=== PATIENT | male | born 1945 | race Two or more races ===

== ENCOUNTER 2022-04-05 08:10 | Day surgery (SDC) | payer MEDICARE, MEDICAID ==
[~2022-04-05] VITALS: Ht 177.8 cm; Wt 59.0 kg
[~2022-04-05 08:10] MED LIST: ACET325T82 PO; ALBU0.08 HHN; ALBU108A5 IN; APIX5TAB PO; ASCO500T11 PO; BISA10SU52 PR; BUDE0.5S IN; BUDE1AER5 IN; FER325T PO; FURO1TAB31 PO; LACTCAP20 OR; MAGN400S25 PO; MIDO5TAB22 PO; MONT-8 OR; MULT-1018 PO; NAPR220C PO; NUTR-340 PO; PANT40TA2 PO; POTA-220 PO
[2022-04-05] MEDS ORDERED: GLYCOPYRROLATE 0.2 MG/ML 1ML VIAL IV ONE (08:11)
[2022-04-05] MEDS ORDERED: NEOSTIGMINE 1 MG/ML INJ (10mg/10ML VIAL) IV ONE (08:11)
[2022-04-05] MEDS ORDERED: ePHEDrine SULFATE 50 MG/ML AMP IV ONE (08:11)
[2022-04-05] MEDS ORDERED: ROCURONIUM 10MG/ML 10ML VIAL IV ONE (08:11)
[2022-04-05 09:25] LABS: INR 1.05 (0.9-1.15); Partial Thromboplastin Time 26.5 sec (23.6-33.0)
[2022-04-05] MEDS ORDERED: ceFAZolin 1GM/50ML 100 ML IV ONE (09:40)
[2022-04-05] MEDS ORDERED: LIDOCAINE 2% JELLY 11ml (GLYDO) ONE (09:59)
[2022-04-05] MEDS ORDERED: LIDOCAINE 1%-Mpf/Epinephrine 1:200,000 ONE (09:59)
[2022-04-05] MEDS ORDERED: fentaNYL CITRATE 100 MCG/2 ML VL ONE (10:03)
[2022-04-05] MEDS ORDERED: MIDAZOLAM HCL 2MG/2ML 2ml VIAL (1mg/ml) ONE (10:04)
[2022-04-05] MEDS ORDERED: SUCCINYLCHOLINE CHLORIDE 20 MG/ML 10ML VIAL IV ONE (10:05)
[2022-04-05] MEDS ORDERED: PROPOFOL 10 MG/ML 20 ML IV ONE (11:25)
[2022-04-05] MEDS ORDERED: ONDANSETRON HCL 4 MG/2 ML VIAL ONE (11:25)
[2022-04-05] MEDS ORDERED: ONDANSETRON HCL 4 MG/2 ML VIAL IV PRN (11:45)
[2022-04-05] MEDS ORDERED: fentaNYL CITRATE 100 MCG/2 ML VL IV PRN (11:45)
[2022-04-05 12:10] VITALS: BP 168/76
== END 2022-04-05 12:40 | disposition home or self-care (01) ==
LOC: SUR 08:10
PROVIDERS: ATTEND Urology
DX: R33.9 Retention of urine, unspecified (principal); N40.1 Benign prostatic hyperplasia with lower urinary tract symptoms; N31.9 Neuromuscular dysfunction of bladder, unspecified; I11.0 Hypertensive heart disease with heart failure; I50.9 Heart failure, unspecified; I48.91 Unspecified atrial fibrillation; J44.9 Chronic obstructive pulmonary disease, unspecified; Z98.890 Other specified postprocedural states; Z79.899 Other long term (current) drug therapy; Z98.41 Cataract extraction status, right eye; Z98.42 Cataract extraction status, left eye; Z87.891 Personal history of nicotine dependence; Z82.49 Family history of ischemic heart disease and other diseases of the circulatory system; Z82.5 Family history of asthma and other chronic lower respiratory diseases; Z20.822 Contact with and (suspected) exposure to COVID-19
CPT/HCPCS: 36415; 51040; 85610; 85730; C2627; J0330; J0690; J2001; J2250; J2405; J2704; J3010; U0003

== ENCOUNTER 2022-04-08 14:28 | Inpatient (IN) | payer MEDICARE, MEDICAID ==
[~2022-04-08] VITALS: Ht 177.8 cm; Wt 64.9 kg
[2022-04-08] MEDS ORDERED: SODIUM CHLORIDE 0.9% 1,000 ML IV ONE (15:30)
[2022-04-08 15:47] LABS: Basophils # (auto) 0 10 ^3/uL (0-0.2); Basophils % (auto) 0.5 % (0.0-2.0); Eosinophils # (auto) 0.2 10 ^3/uL (0-0.8); Eosinophils % (auto) 2.8 % (0.0-7.0); Hematocrit 31.7 % (41.0-53.0); Lymphocytes # (auto) 0.7 10 ^3/uL (0.4-5.4); Lymphocytes % (auto) 9.7 % (10.0-50.0); Mean Corpuscular Hemoglobin 30.4 pg (28.0-32.0); Mean Corpuscular Hgb Conc. 34.5 g/dL (32.0-36.0); Mean Corpuscular Volume 87.9 fL (80.0-100.0); Monocytes # (auto) 0.8 10 ^3/uL (0-1.3); Monocytes % (auto) 11.4 % (0.0-12.0); Neutrophils # (auto) 5.3 10 ^3/uL (1.6-8.6); Neutrophils % (auto) 75.6 % (37.0-80.0); Nucleated Red Blood Cells % 0.1 %; Red Blood Cells 3.61 10^6/uL (4.5-5.90); Red Cell Distribution Width 16.2 % (11.8-14.3); White Blood Cell 7.1 10^3/uL (4.4-10.8)
[2022-04-08 16:04] LABS: INR 1.07 (0.9-1.15)
[2022-04-08 16:08] LABS: Albumin 3.2 g/dL (3.4-5.0); Calcium 9.3 mg/dL (8.5-10.1); Potassium 4.3 mmol/L (3.5-5.1)
[2022-04-08 16:15] LABS: BUN/Creatinine Ratio 19.2; Bilirubin, Total 0.5 mg/dL (0.2-1.0)
[2022-04-08 16:18] LABS: Total Protein 6.3 g/dL (6.4-8.2)
[2022-04-08] MEDS ORDERED: cefTRIAXone 1GM/50ML D5W 50 ML IV ONE (17:00)
[2022-04-08 19:00] LABS: Urine WBC None Seen /hpf (0 - 3)
[2022-04-08 19:14] LABS: Urine Bacteria NONE SEEN /hpf (None Seen); Urine Blood 3+ /uL (Negative)
[2022-04-08 19:15] LABS: Urine Specific Gravity 1.009 (1.001-1.035)
[2022-04-08] MEDS ORDERED: NITROGLYCERIN 0.4 MG SL TAB SL PRN (21:45)
[2022-04-08] MEDS ORDERED: DOCUSATE SOD 100 MG CAP PO PRN (21:45)
[2022-04-08] MEDS ORDERED: MORPHINE SULFATE INJ 2 MG/ml SYRG IV PRN (21:45)
[2022-04-08] MEDS ORDERED: ACETAMINOPHEN 325 MG TAB PO PRN (21:45)
[2022-04-08] MEDS: HYDROcodone-ACET 5/325MG TAB PO PRN (22:21)
[2022-04-08] MEDS: ASCORBIC ACID 500 MG TAB PO SCH (22:21)
[2022-04-08] MEDS: hydrALAZINE HCL 20 MG/ML VL IV PRN (23:01)
[2022-04-09] VITALS (7 sets, daily range): BP systolic 118–177; BP diastolic 50–83
[2022-04-09 05:50] LABS: Basophils # (auto) 0.1 10 ^3/uL (0-0.2); Basophils % (auto) 0.7 % (0.0-2.0); Eosinophils # (auto) 0.3 10 ^3/uL (0-0.8); Hematocrit 31.5 % (41.0-53.0); Hemoglobin 10.7 g/dL (13.5-17.5); Lymphocytes # (auto) 1.4 10 ^3/uL (0.4-5.4); Lymphocytes % (auto) 16.6 % (10.0-50.0); Mean Corpuscular Hemoglobin 30.6 pg (28.0-32.0); Mean Corpuscular Hgb Conc. 33.9 g/dL (32.0-36.0); Mean Corpuscular Volume 90.2 fL (80.0-100.0); Monocytes # (auto) 0.9 10 ^3/uL (0-1.3); Monocytes % (auto) 11.5 % (0.0-12.0); Neutrophils # (auto) 5.5 10 ^3/uL (1.6-8.6); Neutrophils % (auto) 67.2 % (37.0-80.0); Red Blood Cells 3.49 10^6/uL (4.5-5.90); White Blood Cell 8.2 10^3/uL (4.4-10.8)
[2022-04-09 05:51] LABS: Albumin 3.3 g/dL (3.4-5.0); Calcium 9.2 mg/dL (8.5-10.1); Potassium 4.1 mmol/L (3.5-5.1)
[2022-04-09 05:56] LABS: BUN/Creatinine Ratio 20.9; Bilirubin, Total 0.6 mg/dL (0.2-1.0); Total Protein 6.6 g/dL (6.4-8.2)
[2022-04-09] MEDS: ASCORBIC ACID 500 MG TAB PO SCH (08:58)
[2022-04-09] MEDS: HYDROcodone-ACET 5/325MG TAB PO PRN (08:59)
[2022-04-09] MEDS: hydrALAZINE HCL 20 MG/ML VL IV PRN (08:59)
[2022-04-09] MEDS ORDERED: MULTIPLE VITAMIN TAB PO SCH (10:00)
[2022-04-09] MEDS ORDERED: ZINC SULFATE 220mg CAP or TAB PO SCH (10:00)
[2022-04-09] MEDS: MORPHINE SULFATE INJ 2 MG/ml SYRG IV PRN ×2 (11:13→15:18)
[2022-04-09] MEDS: ONDANSETRON HCL 4 MG/2 ML VIAL IV PRN ×2 (11:13→15:19)
[2022-04-09] MEDS ORDERED: BISACODYL 10 MG RECT SUPP PR PRN (15:00)
[2022-04-09] MEDS ORDERED: MILK OF MAGNESIA 30ML SUSP PO PRN (15:00)
[2022-04-09] MEDS ORDERED: CEPH250C28 PO (15:02)
[2022-04-09] MEDS ORDERED: ALBUTEROL SULF HFA 90MCG INH 200DOSE IN PRN (18:00)
[2022-04-09] MEDS ORDERED: ACETAMINOPHEN 325 MG TAB PO SCH (18:00)
[2022-04-09] MEDS ORDERED: ALBUTEROL SULF 2.5 MG/0.5ML(0.5%) NEB SOLN NEB PRN (18:00)
[2022-04-09] MEDS ORDERED: CEPHALEXIN 250 MG CAP PO SCH (22:00)
[2022-04-09] MEDS ORDERED: BUDESONIDE (INHALATION) 0.5 MG/2 ML NEB NEB SCH (22:00)
[2022-04-09] MEDS ORDERED: FERROUS SULFATE 325mg EC TAB PO SCH (22:00)
[2022-04-09] MEDS ORDERED: FUROSEMIDE 40 MG TAB PO SCH (22:00)
[2022-04-09] MEDS ORDERED: PANTOPRAZOLE 40 MG TAB PO SCH (22:00)
[2022-04-10] MEDS ORDERED: MONTELUKAST SODIUM 10 MG TAB PO SCH (10:00)
== END 2022-04-09 19:02 | DRG 690 ==
LOC: EDBD 14:28 → EDUNIT# 14:28 → ER 14:28 → TELE 21:36 → TELE-WESTW 23:24
PROVIDERS: ADMIT Internal Medicine; ATTEND Internal Medicine
DX: N39.0 Urinary tract infection, site not specified (principal); N20.0 Calculus of kidney; I11.0 Hypertensive heart disease with heart failure; I16.0 Hypertensive urgency; I25.10 Atherosclerotic heart disease of native coronary artery without angina pectoris; Z20.822 Contact with and (suspected) exposure to COVID-19; I48.91 Unspecified atrial fibrillation; I50.9 Heart failure, unspecified; J44.9 Chronic obstructive pulmonary disease, unspecified; Z79.01 Long term (current) use of anticoagulants; Z79.51 Long term (current) use of inhaled steroids; Z82.3 Family history of stroke; Z82.49 Family history of ischemic heart disease and other diseases of the circulatory system
CPT/HCPCS: 36415; 71045; 74176; 80053; 81001; 83880; 84484; 85025; 85610; 85730; 87081; 93005; 96365; G0378; J0696; J2405

== ENCOUNTER 2022-05-07 11:34 | Emergency (ER) | payer MEDICARE, MEDICAID ==
[~2022-05-07] VITALS: Ht 177.8 cm; Wt 59.0 kg
[~2022-05-07 11:34] MED LIST changes: +CEPH250C28 PO; -MIDO5TAB22 PO; -NAPR220C PO
[2022-05-07] MEDS ORDERED: CEPH-509 PO (13:58)
[2022-05-07 16:46] LABS: Basophils # (auto) 0.1 10 ^3/uL (0-0.2); Basophils % (auto) 0.7 % (0.0-2.0); Eosinophils # (auto) 0.2 10 ^3/uL (0-0.8); Eosinophils % (auto) 2.8 % (0.0-7.0); Hematocrit 37.7 % (41.0-53.0); Hemoglobin 12.7 g/dL (13.5-17.5); Lymphocytes # (auto) 0.9 10 ^3/uL (0.4-5.4); Lymphocytes % (auto) 10.6 % (10.0-50.0); Mean Corpuscular Hemoglobin 30.9 pg (28.0-32.0); Mean Corpuscular Hgb Conc. 33.8 g/dL (32.0-36.0); Mean Corpuscular Volume 91.4 fL (80.0-100.0); Monocytes # (auto) 0.8 10 ^3/uL (0-1.3); Neutrophils # (auto) 6.3 10 ^3/uL (1.6-8.6); Neutrophils % (auto) 75.9 % (37.0-80.0); Red Blood Cells 4.12 10^6/uL (4.5-5.90); White Blood Cell 8.2 10^3/uL (4.4-10.8)
[2022-05-07 16:59] LABS: Albumin 3.9 g/dL (3.4-5.0); Calcium 10.1 mg/dL (8.5-10.1); Potassium 3.6 mmol/L (3.5-5.1)
[2022-05-07 17:02] LABS: Bilirubin, Total 0.7 mg/dL (0.2-1.0); Total Protein 7.7 g/dL (6.4-8.2)
[2022-05-07 17:18] LABS: INR 2.46 (0.9-1.15); Partial Thromboplastin Time 28.9 sec (23.6-33.0)
[2022-05-07 18:15] VITALS: BP 116/52
[2022-05-07] MEDS ORDERED: ACETAMINOPHEN 325 MG TAB PO ONE (19:00)
[2022-05-07] MEDS ORDERED: fentaNYL CITRATE 100 MCG/2 ML VL IV ONE (19:15)
== END 2022-05-07 19:03 | disposition home or self-care (01) ==
LOC: ER 12:06
DX: T83.028A Displacement of other urinary catheter, initial encounter (principal); N39.0 Urinary tract infection, site not specified; I25.10 Atherosclerotic heart disease of native coronary artery without angina pectoris; I48.91 Unspecified atrial fibrillation; J44.9 Chronic obstructive pulmonary disease, unspecified; I13.0 Hypertensive heart and chronic kidney disease with heart failure and stage 1 through stage 4 chronic kidney disease, or unspecified chronic kidney disease; N18.9 Chronic kidney disease, unspecified; I50.9 Heart failure, unspecified; Z79.899 Other long term (current) drug therapy
CPT/HCPCS: 36415; 51702; 76942; 80053; 84484; 85025; 85610; 85730